=== PATIENT | female | born 1970 | race Caucasian/White ===

== ENCOUNTER 2023-11-14 08:15 | Emergency (ER) | payer OTHER, SELFPAY ==
[2023-11-14 08:32] VITALS: BP 142/103; PULSE 91; RESP 16; TEMP 36.9; O2SAT 98; BMI 34.1
--- NOTE | 2023-11-14 09:02 | ED.BACK ---
HPI - Back Pain/Injury General Chief Complaint: Back Pain/Injury Stated Complaint: back pain Time Seen by Provider: 11/14/23 09:02 Source: patient Mode of arrival: ambulatory Limitations: no limitations History of Present Illness ED Provider: Jim Hernández PA-C HPI Narrative: 53-year-old female with history of hypothyroidism, constipation who presents to the ER for evaluation of lower back pain that started 3 days ago when she went to go from sitting on the toilet to standing. Patient has been suffering from constipation and was on the toilet frequently 3 days ago. She took magnesium citrate and has since resolved her constipation issues. However on Tuesday when she went to go stand up she had immediate pain and spasm of the lower back, right worse than left. She has been taking Motrin, Tylenol, using lidocaine patches with minimal relief. Pain is worse with spinal flexion and some rotation. She denies any radiation of the pain. No numbness, tingling, weakness in her legs. No issues with bowel or bladder incontinence. MD elicited complaint: back pain Onset (ago): day(s) (3) Timing: constant Severity: severe Quality: stabbing and spasming Location: right lower back and left lower back Radiation: none Exacerbating factors: movement Relieving factors: immobilization Context: other (While going from sitting to standing) Associated symptoms: denies other symptoms Treatments prior to arrival: acetaminophen Work related injury: No Related Data Previous Rx's ?Medication ?Instructions ?Recorded cyclobenzaprine 10 mg tablet 10 mg PO TID PRN muscle spasm #14 11/14/23 tabs ketorolac 10 mg tablet 10 mg PO Q8H PRN pain 3 days #9 11/14/23 tabs Allergies Allergy/AdvReac Type Severity Reaction Status Date / Time No Known Allergies Allergy Verified 11/14/23 08:36 Review of Systems Review of Systems: Yes all other systems are reviewed and are negative [facility] Social History Social History Advance Directives: No Advance Directives Information Provided: No Do you have a plan to hurt others: No Plan Physical Exam Vital Signs: Vital Signs: Last Vital Signs Temp 98.4 F 11/14/23 08:32 Pulse 91 11/14/23 08:32 Resp 16 11/14/23 08:32 BP 142/103 H 11/14/23 08:32 Pulse Ox 98 11/14/23 08:32 O2 Del Method Room Air 11/14/23 08:32 BMI result Body Mass Index 34.1 Appearance: Alert. Oriented X3. No acute distress. HEENT: normal inspection CVS: Normal heart rate and rhythm. Pulses normal. Respiratory: No respiratory distress. Skin: Skin warm and dry. Normal skin color. Normal skin turgor. No rashes. Back: Normal inspection. Tenderness of the soft tissues of the lumbar region with palpable muscle spasm of the paraspinous muscles on the right side. Pain with spinal flexion. Negative straight leg raise test. Steady gait. Normal deep tendon reflexes. Extremities: Normal inspection x4, no joint swelling. Neuro: Oriented X 3. No motor deficit. No sensory deficit. Medical Decision Making Medical Decision Making MDM Narrative: 53-year-old female presents the ER for evaluation of white worse than left lower back pain after she went from sitting to standing 3 days ago. No red flag symptoms of low back pain. She has soft tissue tenderness and palpable spasm of the paraspinous muscles on the right side. Will plan to start muscle relaxers, give a dose of IM ketorolac. We discussed the likely etiology of this being muscular and current management as well as return precautions and need for outpatient follow-up. She is stable for discharge home. Patient is in agreement. All questions were answered. Work note provided per request. Differential Diagnosis Differential Diagnoses: The differential diagnosis associated with the presentation includes Inflammatory disorders, malignancy, trauma, osteoporosis, nerve root compression, radiculopathy, plexopathy, degenerative disc disease, disc herniation, spinal stenosis, sacroiliac joint dysfunction, facet joint injury, and less likely infection?like abscess or diskitis Tests considered The following testing was considered but not selected: Considered spinal x-ray however low clinical suspicion for any fracture or dislocation Prescription Management I considered prescription management with: Pain Medication Critical Care Time Critical Care Time Critical Care Time: No Discharge Plan Discharge Clinical Impression: Strain of lumbar region Patient Disposition: Home, Self-Care Instructions: Low Back Strain (ED), Lower Back Exercises (ED) Additional Instructions: Your pain is most likely due to muscle strain and spasm. No bending, lifting or twisting. Use ice several times per day for 20 minutes at a time for the next 48 hours and then change to heat. Take medications as prescribed to help with pain and discomfort. Ketorolac is a type of anti-inflammatory medication, do not take Motrin, Aleve, ibuprofen or any other NSAID while you are taking ketorolac. Follow up with your Primary Care Doctor this week. If your pain worsens, if you develop new numbness, tingling, weakness, loss of function or incontinence call 911 or come back to the ER right away for evaluation. Prescriptions: New cyclobenzaprine 10 mg tablet 10 mg PO TID PRN (Reason: muscle spasm) Qty: 14 0RF ketorolac 10 mg tablet 10 mg PO Q8H PRN (Reason: pain) 3 Days Qty: 9 0RF Stand Alone Forms: Work/School Release Print Language: Sinhala
[2023-11-14] MEDS: Ketorolac Tromethamine 30 MG/ML VIAL IM (09:32)
[2023-11-14 09:38] VITALS: BP 142/103; PULSE 91; RESP 16; TEMP 36.9; O2SAT 98
== END 2023-11-14 09:39 | disposition home or self-care (01) ==
PROVIDERS: Emergency Provider Emergency Medicine
DX: S39.012A Strain of muscle, fascia and tendon of lower back, initial encounter (principal); X50.1XXA Overexertion from prolonged static or awkward postures, initial encounter; K59.00 Constipation, unspecified; Y93.9 Activity, unspecified; Y92.9 Unspecified place or not applicable; Y99.9 Unspecified external cause status; Z79.899 Other long term (current) drug therapy
CPT/HCPCS: 96372; 99283; 99284; J1885

== ENCOUNTER 2024-03-07 10:15 | Outpatient (AMB) | payer OTHER, SELFPAY ==
--- NOTE | 2024-03-07 10:16 | AM.OFFWIN_ITS ---
Intake Vital Signs 03/07/24 10:17 Height 5 ft 4 in Weight 210 lb BMI 36.0 BP 114/68 Blood Pressure Location Rt brachial Position Sitting Pulse 109 H Pulse Source Pulse Oximeter Temp 101.1 F H Temp Source Oral Pulse Oximetry (%) 96 Intake Visit Reasons: [employer] Covid? Intake Note: pt c/o cough, congestion, body aches, chills. Started yesterday. 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 States + fatigue, body aches, congestion, headache, cough + sinus pressure + fever and chills No chest pain or SOB Tried at home OTC medicine with minimal relief of body aches but does help with fever Last dose was at 6am States this is her first time with covid No other complaints PFSH Social History Patient Tobacco Use Status: Current everyday Tobacco user Review of Systems Const Reports chills, Reports fatigue, Reports fever(s), Reports headache(s) and Reports malaise Eyes Denies change in vision ENT Denies dizziness, Reports headache(s), Reports nasal congestion, Reports nasal discharge, Reports sinus pressure, Denies sore throat and Denies throat swelling Card Denies chest pain, Denies syncope and Denies dyspnea Resp Denies dyspnea GI Denies abdominal pain and Denies vomiting Musc Reports myalgias Skin/Breast Denies rash Neuro Denies dizziness, Denies syncope and Reports headache(s) Endo Reports fatigue Aller/Immun Denies throat swelling Physical Exam Vital Signs: Last Vital Signs Temp 101.1 F H 03/07/24 10:17 Pulse 109 H 03/07/24 10:17 BP 114/68 03/07/24 10:17 Pulse Ox 96 03/07/24 10:17 BMI result Body Mass Index 36.0 General: Non-toxic, NAD. Speaking full sentences. Skin: Warm dry throughout Eye: EOMI HENT: Airway patent. Uvula midline. No pharyngeal erythema or edema. No [employer]. + rhinorrhea and sinus tenderness. Bilateral canals clear. TM non-erythematous, non-bulging. No TM perforation or hemotympanum noted. Respiratory: CTA bilaterally. No wheezes, rales or rhonchi Cardiac: RRR. No murmur MSK: Full ROM extremities. Neurology: A/O. No aphasia or facial droop. Gait without abnormality Psych: Good mood and affect Assessment & Plan Assessment & Plan (1) COVID: Code(s): U07.1 - COVID-19 Plan: Pt took at home covid test but will confirm + with pcr Lungs cta but discussed covid pna possibility and sh will monitor for continual fevers or onset hemoptysis, CP, worsening cough, sputum production change Declined paxlovid and was prescribed tessalon Fever control with tylenol/motrin Quarantine x 5 days and needs to be fever free x 24hours. Go to ED if CP, SOB or worsening concerns Pt admits to understanding and had no additional questions at time of discharge Orders: Orders SARS-CoV2/FLU/RSV Today J06.9 - Acute upper respiratory infection, unspecified Medications: New benzonatate 100 mg PO BID-TID PRN 14 caps 0RF cough Coding Level of Care Code Est Pt Level 3 (86204) Diagnoses COVID U07.1
[2024-03-07 10:17] VITALS: BP 114/68; PULSE 109; TEMP 38.4; O2SAT 96; BMI 36.0
== END 2024-03-07 10:40 | disposition home or self-care (01) ==
PROVIDERS: Visit Provider Physician Assistant
DX: U07.1 COVID-19 (principal)
CPT/HCPCS: 99213

== ENCOUNTER 2024-03-07 10:39 | Outpatient (REF) | payer OTHER, SELFPAY ==
[2024-03-07 15:08] LABS: Influenza A PCR NEGATIVE (Negative); Influenza B PCR NEGATIVE (Negative); Resp Syncy Virus RNA Qual PCR NEGATIVE (Negative); SARS COV2 PCR INHOUSE POSITIVE (Negative)
== END 2024-03-07 10:40 | disposition home or self-care (01) ==
LOC: HO.LAB 10:39
PROVIDERS: Visit Provider Physician Assistant
DX: J06.9 Acute upper respiratory infection, unspecified (principal)
CPT/HCPCS: 0241U